=== PATIENT | female | born 1960 | race Caucasian/White ===

== ENCOUNTER 2017-05-03 15:41 | Outpatient (CLI) | payer BC ==
[~2017-05-03] VITALS: Ht 156.2 cm; Wt 60.3 kg
[2017-05-03] MEDS ORDERED: ASCO-262 PO (15:42)
[2017-05-03] MEDS ORDERED: L.AC1CAP6 PO (15:42)
[2017-05-03] MEDS ORDERED: THYR30TA2 PO (15:42)
[2017-05-03] MEDS ORDERED: THYR60TA2 PO (15:42)
[2017-05-03] MEDS ORDERED: OMG1KC PO (15:42)
[2017-05-03] MEDS ORDERED: THYR15TA PO (15:42)
[2017-05-03] MEDS ORDERED: MULT-10 PO (15:42)
== END 2017-05-03 16:06 ==
LOC: PREOP 15:41
PROVIDERS: ATTEND Otolaryngology Otolaryngology/Facial Plastic Surgery
DX: Z01.818 Encounter for other preprocedural examination (principal); J32.4 Chronic pansinusitis; J34.3 Hypertrophy of nasal turbinates

== ENCOUNTER 2017-05-14 08:28 | Day surgery (SDC) | payer BC ==
[~2017-05-14] VITALS: Ht 156.2 cm; Wt 60.3 kg
[~2017-05-14 08:28] MED LIST: ASCO-262 PO; L.AC1CAP6 PO; MULT-10 PO; OMG1KC PO; THYR15TA PO; THYR30TA2 PO; THYR60TA2 PO
[2017-05-14] MEDS ORDERED: LACTATED RINGERS 1,000 ML IV PRN (08:54)
[2017-05-14] MEDS ORDERED: FAMOTIDINE 20MG/2ML IV (PEPCID) IV ONE (09:00)
--- NOTE | 2017-05-14 09:23 | Progress Note-Pre Operative ---
Pre-Operative Progress Note H&P Reviewed The H&P was reviewed, patient examined and no changes noted. Date Seen by Provider: May 14, 2017 Time Seen by Provider: 09:10 Date H&P Reviewed: May 14, 2017 Time H&P Reviewed: 09:10 Pre-Operative Diagnosis: Bilat Chronci Sinusitis, Bilat Hyper of Inf Turbs SUHAS WATSON MD May 14, 2017 9:23 am
[2017-05-14] MEDS ORDERED: HYDROCORTISONE 100 MG/2 ML (Solu-CORTEF) VIAL ONE (09:24)
[2017-05-14] MEDS ORDERED: AMPICILL/SULB 1.5 GM VIAL (UNASYN) ONE (09:24)
[2017-05-14] MEDS ORDERED: NS (IVPB) 50 ML ONE ×2 (09:25→10:41)
[2017-05-14 10:04] VITALS: BP 132/80
[2017-05-14] MEDS ORDERED: HYDROCORTISONE 100 MG/2 ML (Solu-CORTEF) VIAL IV ONE (10:15)
[2017-05-14] MEDS ORDERED: CLINDAMYCIN 600 MG/4ML (CLEOCIN) VIAL ONE ×2 (10:40→10:41)
[2017-05-14] MEDS ORDERED: proPOfol 200 MG/20 ML (DIPRIVAN) VIAL IV ONE (10:51)
[2017-05-14] MEDS ORDERED: LACTATED RINGERS 1,000 ML IV ONE (10:51)
[2017-05-14] MEDS ORDERED: SEVOFLURANE (ULTANE) 15 ML INHAL SOLN ONE (10:51)
[2017-05-14] MEDS ORDERED: LIDOCAINE PF 2% 5 ML (XYLOCAINE) VIAL ONE (10:51)
[2017-05-14] MEDS ORDERED: fentaNYL INJECTION 100 MCG/2 ML AMP ONE (10:52)
[2017-05-14] MEDS ORDERED: MIDAZOLAM 2 MG/2 ML (VERSED) VIAL ONE (10:52)
[2017-05-14] MEDS ORDERED: COCAINE HCL 4% 2 ML SYR ONE (10:58)
[2017-05-14] MEDS ORDERED: BSS 15 ML ONE (10:58)
[2017-05-14] MEDS ORDERED: LIDOCAINE/EPI 1%-1:200,000 (XYLOCAINE) 30 ML VIAL ONE (10:58)
[2017-05-14] MEDS ORDERED: PHENYLEPHRINE 0.5% NASAL SPR (NEO-SYNEPHRINE) REG ONE (10:58)
[2017-05-14] MEDS ORDERED: ROCURONIUM 50 MG/5 ML (ZEMURON) VIAL IV ONE (10:59)
[2017-05-14] MEDS ORDERED: CLINDAMYCIN 600 MG/NS 50 ML IVPB IV ONE ×2 (11:00)
[2017-05-14] MEDS ORDERED: D5 1/2 NS W/KCL 20 MEQ/L 1,000 ML IV SCH (13:11)
--- NOTE | 2017-05-14 13:11 | Progress Note-Post Operative ---
Post-Operative Progess Note Surgeon (s)/Motorcycle Mechanic Apprentice (s) Surgeon SUHAS WATSON MD Motorcycle Mechanic Apprentice n/a Pre-Operative Diagnosis Bilat Chronic Sinusitis, Bilat Hyper of Inf Turbs Post-Operative Diagnosis same Post-Op Procedure Note Date of Procedure: May 14, 2017 Name of Procedure Performed: Bilat ESS, Bilat REd of INf Turbs Description & Findings Description and Findings: n/a Anesthesia Type get Estimated Blood Loss minimal Packing DNP Bilat Specimen(s) collected/removed Bilat Crhonic Sinus Disease and polyps SUHAS WATSON MD May 14, 2017 1:11 pm
[2017-05-14] MEDS ORDERED: ACETAMINOPHEN 325 MG TABLET/CAPLET (TYLENOL) PO PRN (13:15)
[2017-05-14] MEDS ORDERED: PROMETHAZINE INJ 25 MG/ML (PHENERGAN) AMP IVP PRN (13:15)
[2017-05-14] MEDS ORDERED: HYDROcodone/APAP 5 MG/325 MG (LORTAB) TAB PO PRN (13:15)
[2017-05-14] MEDS ORDERED: predniSONE 20 MG TAB PO ONE (13:15)
[2017-05-14] MEDS ORDERED: fentaNYL INJECTION 100 MCG/2 ML AMP IVP PRN (13:30)
[2017-05-14] MEDS ORDERED: morphine INJ 10 MG/ML 1ML (SYR OR VIAL) IVP PRN (13:30)
[2017-05-14] MEDS ORDERED: ONDANSETRON 4 MG/2 ML (SDV) Z0FRAN IVP PRN (13:30)
[2017-05-14 14:15] VITALS: BP 125/83
[2017-05-14 14:45] VITALS: BP 129/87
[2017-05-14 15:15] VITALS: BP 124/80
[2017-05-14] MEDS ORDERED: predniSONE 20 MG TAB ONE (15:16)
[2017-05-14] MEDS ORDERED: CLIN150C2 PO (15:19)
[2017-05-14] MEDS ORDERED: ACET-789 PO (15:19)
[2017-05-14] MEDS ORDERED: PRD20T PO (15:19)
[2017-05-14] MEDS ORDERED: ACETAMINOPHEN 325 MG TABLET/CAPLET (TYLENOL) ONE (15:27)
[2017-05-14 15:56] VITALS: BP 124/80
== END 2017-05-14 15:45 | disposition home or self-care (01) ==
LOC: SDC 08:28
PROVIDERS: ATTEND Otolaryngology Otolaryngology/Facial Plastic Surgery
DX: J32.0 Chronic maxillary sinusitis (principal); J32.2 Chronic ethmoidal sinusitis; J34.3 Hypertrophy of nasal turbinates
CPT/HCPCS: 87081